=== PATIENT | male | born 1950 | race Hispanic/Latino ===

== ENCOUNTER → 2023-07-06 | Outpatient (CLI) | payer MEDICARE | END | disposition home or self-care (01) | LOC: SHCH 09:45 | PROVIDERS: ATTEND Internal Medicine Cardiovascular Disease | DX: I34.0 Nonrheumatic mitral (valve) insufficiency (principal); I10 Essential (primary) hypertension; E11.9 Type 2 diabetes mellitus without complications | CPT/HCPCS: 93306 ==

== ENCOUNTER → 2024-03-14 | Outpatient (CLI) | payer MEDICARE ==
[2024-03-14 12:34] LABS: ALBUMIN 3.8 g/dL (3.5-5.0); BILIRUBIN,TOTAL 0.8 mg/dL (0.2-1.0); POTASSIUM 4.4 mmol/L (3.5-5.1)
== END | disposition home or self-care (01) ==
LOC: LAB 08:13
PROVIDERS: ATTEND Internal Medicine Cardiovascular Disease
DX: I25.10 Atherosclerotic heart disease of native coronary artery without angina pectoris (principal); E78.2 Mixed hyperlipidemia
CPT/HCPCS: 36415; 80053; 80061

== ENCOUNTER → 2024-08-09 | Outpatient (CLI) | payer MEDICARE ==
--- NOTE | 2024-08-10 16:44 | HMCSR ---
APPROVED REPORT TEST INDICATIONS CAD The imaging protocol used to acquire images was Rest Tc-99m / TREADMILL stress Tc-99m 1 day Consent: The procedure was explained and understood by the patient. Informerd consent was witnessed JESSICA Tracey First, low dose rest was performed then high dose stress. RESTING DATA: The resting ekg shows: NSR, , LBBB, PVC's Rest SPECT myocardial perfusion imaging was performed in supine position minutes following the intra venous injection of 11 mCi of Tc-99 Sestamibi. Time of rest injection: 0950 Date: 08/09/2024 EXERCISE STRESS: At peak stress, the patient was injected intravenously with 28mCi of Tc-99 Sestamibi. Time of stress injection: 1248 Date: 08/09/2024 Heart Rate at time of stress injection: 124 bpm. Patient continued to exercise for 1 minute(s). The images were gated to evaluate regional wall motion and calculate left ventricular ejection fracti on. STRESS DETAILS Reason for Termination: Infusion complete Stress Symptoms: No chest pain or symptoms Max HR Achieved: 143 bpm % of APMHR Achieved: 115 Max Blood Pressure: 195/60 mmHg Exercise duration: 6 min Highest Stage Achieved: Stage 2: 2.5 mph at 12% grade. Stress ECG: Tachycardia, LBBB, PVC's Study quality was fair. Lung uptake was Normal. Artifact: motion artifact LEFT VENTRICLE The left ventricular ejection fraction was calculated to be 58%.TID = 1.01. LV PERFUSION Stress Perfusion Normal IMPRESSION Equivocally normal pharmacologic nuclear stress test. Conclusion Equivocally normal [id number] stress test with an LVEF of 58% and a TID of 1.01 There is a small perfusion defect inferiorly which improves on stress imaging suggestive of artifact. No reversible ischemia observed.
== END | disposition home or self-care (01) ==
LOC: RAH 08:24
PROVIDERS: ATTEND Internal Medicine Cardiovascular Disease
DX: I49.3 Ventricular premature depolarization (principal); I44.7 Left bundle-branch block, unspecified; I25.10 Atherosclerotic heart disease of native coronary artery without angina pectoris; R00.0 Tachycardia, unspecified
CPT/HCPCS: 78452; 93017; A9500 ×2